=== PATIENT | female | born 1995 | race Caucasian/White ===

== ENCOUNTER 2017-02-19 01:24 | Emergency (ER) | payer BC ==
[~2017-02-19] VITALS: Ht 170.2 cm; Wt 71.4 kg
[2017-02-19 02:10] LABS: MCH 27.4 PG (29.0-34.0); MEAN PLAT.VOLUME 10.1 uM^3 (9.5-12.4); PLATELET COUNT 237 K/uL (156-360); RBC DIS.WIDTH-CV 14.3 % (11.8-14.6); RBC DIS.WIDTH-SD 42.9 % (39-53); RED BLOOD COUNT 4.82 M/uL (3.80-5.20); WHITE BLOOD COUNT 10.9 K/uL (4.1-10.2)
[2017-02-19 02:26] LABS: CHLORIDE 105 mEq/L (99-109); POTASSIUM 3.5 mEq/L (3.7-5.4); SODIUM 141 mEq/L (136-147)
[2017-02-19 02:28] LABS: GLUCOSE 120 mg/dL (70-99)
[2017-02-19 02:29] LABS: ANION GAP 11 MEQ/L (2-14)
[2017-02-19 02:32] LABS: GFR ESTIMATE (CALCULATED) > 59 mL/min/
[2017-02-19 02:33] LABS: UREA NITROGEN (BUN) 10 mg/dL (9-23)
[2017-02-19 02:40] LABS: QUANTITATIVE HCG < 4.0 MIU/ML
[2017-02-19] MEDS ORDERED: NAPROXEN500 MG PO (02:47)
[2017-02-19 02:59] VITALS: BP 125/87
== END 2017-02-19 03:00 | disposition home or self-care (01) ==
LOC: EME 01:24 → EXP 01:24
PROVIDERS: Physician Assistant
DX: R07.9 Chest pain, unspecified (principal)
CPT/HCPCS: 71020; 80048; 84702; 85027; 93005; 99281; 99284